=== PATIENT | female | born 1990 ===

== ENCOUNTER 2020-09-29 14:02 | Emergency (ER) | payer OTHER ==
[~2020-09-29] VITALS: Ht 162.6 cm; Wt 65.8 kg
== END 2020-09-29 19:08 | disposition home or self-care (01) ==
LOC: ER 14:02
DX: R07.89 Other chest pain (principal); R00.0 Tachycardia, unspecified; F06.4 Anxiety disorder due to known physiological condition

== ENCOUNTER 2021-01-25 17:55 | Emergency (ER) | payer OTHER ==
[~2021-01-25] VITALS: Ht 162.6 cm; Wt 64.9 kg
== END 2021-01-25 21:53 | disposition home or self-care (01) ==
LOC: ER 17:55
DX: N20.0 Calculus of kidney (principal); N39.0 Urinary tract infection, site not specified

== ENCOUNTER 2021-06-08 22:43 | Emergency (ER) | payer OTHER ==
[~2021-06-08] VITALS: Ht 167.6 cm; Wt 68.0 kg
[2021-06-09] MEDS ORDERED: ZYNCOF 20-400120 ML PO (03:10)
== END 2021-06-09 03:30 | disposition home or self-care (01) ==
LOC: ER 22:43
DX: B34.8 Other viral infections of unspecified site (principal)